=== PATIENT | female | born 1940 | race Caucasian/White ===

== ENCOUNTER 2025-01-21 06:02 | Emergency (ER) | payer MEDICARE ==
[~2025-01-21] VITALS: Ht 170.2 cm; Wt 47.0 kg
[2025-01-21 06:13] VITALS: TEMP 36.9; O2SAT 99
[2025-01-21] MEDS: LIDOCAINE 5% PATCH TOP SCH (07:05)
[2025-01-21 07:11] LABS: HEMATOCRIT. 40.1 % (36.0-48.0); HEMOGLOBIN. 12.7 g/dL (12.0-16.0); MEAN CORPUSCULAR HEMOGLOBIN 31.1 pg (28.0-32.0); MEAN CORPUSCULAR HGB CONC 31.7 g/dL (31.0-37.0); MEAN CORPUSCULAR VOLUME 97.8 fL (81.0-99.0); MEAN PLATELET VOLUME 9.7 fl (7.4-10.4); PLATELET 152 x1000/uL (130-400); RED CELL DISTRIBUTION WIDTH 14.1 % (11.6-14.6); WHITE BLOOD COUNT 39.8 x1000/uL (4.5-11.0)
[2025-01-21 07:13] LABS: DIFFERENTIAL COMMENT 1
[2025-01-21 07:30] LABS: CHLORIDE 104 mEq/L (98-107); SODIUM 140 mEq/L (136-145)
[2025-01-21 07:31] LABS: CARBON DIOXIDE 25 mEq/L (21-32)
[2025-01-21 07:32] LABS: CALCIUM 10.2 mg/dL (8.7-10.4)
[2025-01-21 07:36] LABS: CREATININE 0.6 mg/dL (0.6-1.0); GLUCOSE 122 mg/dL (70-105); UREA NITROGEN BLOOD 21 mg/dL (9-23)
[2025-01-21 07:37] LABS: TROPONIN I HIGH SENSITIVITY 10 ng/L (3.0-34)
[2025-01-21 08:40] VITALS: BP 115/51; PULSE 70; RESP 12; O2SAT 100
[2025-01-21 10:33] LABS: PLATELET ESTIMATE NORMAL; SMUDGE CELLS 1+
== END 2025-01-21 08:45 | disposition left against medical advice (07) ==
LOC: ER 06:26
DX: M25.511 Pain in right shoulder (principal); Z53.29 Procedure and treatment not carried out because of patient's decision for other reasons; I25.2 Old myocardial infarction; Z98.890 Other specified postprocedural states; Z85.118 Personal history of other malignant neoplasm of bronchus and lung
CPT/HCPCS: 36415; 73030; 80048; 83880; 84484; 85025; 93005; 99285